=== PATIENT | female | born 1970 | race Caucasian/White ===

== ENCOUNTER 2024-07-27 12:27 | Day surgery (SDC) | payer OTHER, SELFPAY ==
[2024-07-17 13:37] VITALS: BMI 23.3
[2024-07-27] VITALS (12 sets, daily range): BP systolic 106–122; BP diastolic 68–82; PULSE 71–97; RESP 12–18; TEMP 36.1–36.8; O2SAT 95–100; BMI 23.0; BMI 23.8
--- NOTE | 2024-07-27 | PATH_ITS ---
[facility] Accession Number: [id number] No. of containers..01 Tissue . 01 Material submitted: . uterus - UTERUS,CERVIX,BILATERAL FALLOPIAN TUBES, BILATERAL OVARIES . 01 Diagnosis: UTERUS, CERVIX, BILATERAL FALLOPIAN TUBES AND OVARIES, HYSTERECTOMY AND BILATERAL SALPINGO-OOPHORECTOMY: Uterus with inactive endometrium with prominent decidualization, suggestive of exogenous hormone effect, and leiomyoma (0.5 cm). Bilateral fimbriated fallopian tubes with benign paratubal cysts, otherwise unremarkable. Histologically unremarkable cervix and bilateral ovaries. Negative for malignancy. [facility] 07/31/2024 1308 Local . 01 Electronically signed: . Heidy Anderson DO, Pathologist NPI- [id number] . 01 Gross description: . Received in formalin with two identifiers and uterus, cervix, bilateral fallopian tubes, and ovaries, is an intact uterus (95 grams, 8.3 cm superior to inferior, 6.0 cm medial to lateral, and 4.0 cm anterior to posterior) with attached cervix (3.1 x 3.0 cm), left fallopian tube (5.5 x 0.6 cm), left ovary (2 grams, 2.4 x 1.7 x 0.8 cm), right fallopian tube (4.8 x 0.9 cm), and right ovary (3 grams, 2.4 x 1.5 x 1.5 cm). . The ectocervix is rankin, smooth, and glistening with a patulous os, 0.7 cm in diameter. The anterior margin is inked blue while the posterior margin is inked black. The serosa is violaceous and wrinkled with no lesions identified. The endocervical canal has rankin, herringbone mucosa and measures up to 2.2 cm in length with multiple cystic structures filled with cloudy gelatinous material up to 0.6 cm in greatest dimension. The endometrial cavity is 2.4 cm from cornu to cornu and 4.1 cm in length with pink-red velvety endometrium that averages 0.1 cm thick. The myometrium is pink-rankin and moderately trabecular, up to 2.2 cm in maximum thickness with a well-circumscribed white whorled nodule, 0.5 cm in greatest dimension located intramurally. No additional lesions are identified. Both tubes have violaceous, smooth serosa with cysts up to 0.3 cm in greatest dimension filled with cloudy serous fluid. The lumina are stellate and unremarkable. . Both ovaries have rankin, smooth external surfaces and sectioning reveals both ovaries to have unremarkable physiologic cut surfaces with no lesions or cysts identified. . Integrity Manager sections are submitted as follows: A1: Anterior cervix. A2: Posterior cervix. A3: Anterior full thickness section. A4: Posterior full thickness section. A5: Nodule. A6 : Left fallopian tube to include one-half of bisected fimbriae and cross sections. A7: Left ovary. A8: Right fallopian tube to include one-half of bisected fimbriae and cross sections. A9: Right ovary. ([id number]) /MRV 07/28/2024 1801 Local . 01 Pathologist provided ICD-10: N39.3 . 01 CPT . 450253 Specimen Comment: A courtesy copy of this report has been sent to [phone] Performed at: [address] [facility] [address], [place], [place] [id number] MD Nahid Mederos MD Phone: [phone]
--- NOTE | 2024-07-27 10:25 | PM.PREOP ---
Pre-operative Note COVID-19 COVID-19 status: Not tested Interval Note History & Physical reviewed/Exam performed by Physician: Yes Changes to H&P: No
[2024-07-27] MEDS: LACTATED RINGERS 1,000 ML 42 ML IV (12:40)
[2024-07-27] MEDS: ACETAMINOPHEN 325 MG TABLET 975 MG PO (12:53)
[2024-07-27] MEDS: PREGABALIN 75 MG CAPSULE PO (12:53)
[2024-07-27] MEDS: ONDANSETRON 4 MG/2 ML INJ IV (12:56)
[2024-07-27] MEDS: FAMOTIDINE 20 MG/2 ML VIAL IV (12:56)
[2024-07-27] MEDS: SCOPOLAMINE 1 PATCH TOP (12:56)
--- NOTE | 2024-07-27 13:47 | SUR.OPER ---
Lithotomy on padded OR bed. [place] Pad Positioner under torso. Head on pillow, arms padded and tucked at sides. Legs secured in padded yellow fins stirrups.
--- NOTE | 2024-07-27 15:31 | PM.GYNOP.1 ---
Operative Date/Time/Diagnoses Date of procedure: 07/27/24 Time of procedure: 13:00 Pre-op diagnosis: Postmenopausal bleeding Stress urinary incontinence Post-op diagnosis: same Procedure & Clinicians Procedure: Procedures Operation Date: 07/27/24 14:15 Actual Procedure Side Surgeon p Laparoscopic Total Hysterectomy with bilateral salpingectomy, and bilateral oophorectomy Juan Antonio Morales MD s TVT sling with cysto Juan Antonio Morales MD Indications: Brenda is a 53-year-old who presents today for evaluation of persistent postmenopausal bleeding. She experienced menarche at age 8 and had regular predictable menses throughout her reproductive years Until 2011 when she had her 1st Mirena placed. The Mirena was removed and replaced in 2016 and it was removed in September 2021. Initially the patient had no bleeding but when bleeding recurred, a new IUD was placed in August 2022. Due to vasomotor symptoms, the patient has been on estradiol gel 0.075 mg daily since January 2023. Patient continues to bleed and endometrial sampling performed by her primary provider is negative. Pelvic ultrasound performed 07/28/2023 shows uterus to be anteverted and normal in size measuring 7.6 x 5.1 x 4.4 cm. The myometrium is described as homogeneous. The endometrium measures 3 mm in combined thickness. There were small calcifications noted in the myometrium but no fibroids were seen. Nabothian cysts are present in the cervix. The ovaries are normal with each having a total calculated volume of 1 cc and normal sonographic appearance. Patient has a history of normal Paps throughout her reproductive life. We had an extensive conversation regarding potential causes for postmenopausal bleeding as well as options for management. Included in those options is removal of her IUD in substitution of micronized progesterone. We also discussed the possibility of hysteroscopy with D&C and endometrial ablation. Unfortunately neither those options could guarantee that her postmenopausal bleeding with sees on a permanent basis. We also talked about hysterectomy with bilateral salpingo and is the direction which the patient would like to move forward. In addition she would also like to have a mid urethral sling placement at the time of hysterectomy to address her stress urinary incontinence. Endometrial sampling and a Pap smear were performed and are both negative. Patient presents today for her scheduled surgery. Surgeon: Juan Antonio Morales Anesthesia Type: General Operative Notes Findings: The uterus is normal in size and shape. The anterior and posterior cul-de-sacs are unremarkable. The tubes and ovaries both appeared to be normal. The remainder of the abdomen and pelvis are normal to laparoscopic inspection. Cystoscopy shows normal bladder mucosa throughout with no evidence of injury to the bladder during surgery and vigorous passage of urine from each ureteral meatus. Closure Type: primary Specimen(s): left tube & ovary, right tube & ovary and uterus Applied: catheter Estimated blood loss (mL): 75 Blood products transfused: none Procedure in detail: With the patient in modified dorsal lithotomy position preparations were made by prepping and draping the patient in usual manner for vaginal surgery and insertion of Ann catheter. A pre-surgical time-out was then taken in accordance with [facility] policy. A bivalve speculum was then placed in the vagina and the cervix visualized. The anterior lip of the cervix was then grasped with a single-tooth tenaculum. The uterus was sounded to 7 cm, the endocervical canal dilated slightly, and a VCare uterine manipulator with a medium colpotomy cup was placed. The umbilicus was then infiltrated with 0.5% Marcaine with epinephrine. A 1 cm umbilical incision was made transversely and a Veress needle was used to insufflate the abdominal cavity with carbon dioxide. Once the abdomen was appropriately insufflated, a 5 mm trocar and sleeve were then placed through the umbilical incision. The scope was placed through the trocar and the initial assessment of the intra-abdominal contents carried out. A 2nd and 3rd 5 mm port was then placed 1st in the right mid quadrant from then the left mid quadrant by infiltration of the skin and subcutaneous tissues, a 1 cm transverse incision and insertion of the 5 mm bladeless port. Using a 3 puncture technique, the abdomen and pelvis were inspected laparoscopy and photographically documented. Uterus is mobilized with the VCare manipulator and attention turned to the left adnexa. The distal tube was then grasped and the infundibulopelvic ligament divided after coagulation with the PowerSeal device. The dissection was then carried out toward the cornua, then carried down using the PowerSeal device so as to divide the utero-ovarian ligament and the round ligament with blunt and sharp dissection of the broad down to the level of the uterine artery. The uterine artery was then skeletonized after development of a bladder flap, coagulated, and divided. Once hemostasis was assured on the left side attention was turned to the right and the infundibulopelvic ligament, mesosalpinx, round ligament, and broad ligament were dissected in a fashion exactly the same as it had been on the left. The right uterine artery was then visualized after skeletonization and coagulated and divided. The uterus was seen to prasanth after coagulation of both your arteries and the cup was identified through the vaginal muscularis at its insertion with the body of the cervix. Circumferential excision of the vaginal cup was accomplished without difficulty using monopolar current and the uterus mobilized. The uterus was then removed through the vagina and the vaginal cuff closed [id number] with a series of 0 Vicryl gmhzny-kt-xkuir stitches. Hemostasis was excellent, the abdomen was re-insufflated, and the pelvis inspected laparoscopically. The pelvis was inspected for any abnormality or bleeding, and the ureters were each seen to be peristalsing freely. With complete hemostasis assured, the pneumoperitoneum was vented and the ports removed. All of the 5 mm ports were then closed with 4-0 Monocryl on the skin using inverted interrupted sutures. Skin glue was placed and after the glue was dried, an appropriate dressing was applied. A Ann catheter was inserted in the bladder at the beginning of the case and the mid urethra was identified by palpation of the Ann bulb. A weighted vaginal speculum was placed and once the mid urethra had been identified, 2 Allis clamps were placed and the area of incision infiltrated with 0.25% Marcaine with epinephrine. A 2 cm longitudinal incision of the vaginal mucosa overlying the mid urethra was then made and using Metzenbaum scissors the dissection was carried lateral on both sides so as to be able to safely introduce the retropubic tension-free vaginal tape. The TVT needle was placed 1st on the right side followed by placement of a left up through the suprapubic skin. The needle tips were brought out through the skin and remained in place while the Ann catheter was removed and cystoscopy performed with findings as noted above. The TVT needles were then brought up through the suprapubic incisions and removed with suture scissors. The mid urethral sling was then appropriately positioned under the mid urethra and the plastic sleeves removed from the TVT once it was in correct position. The redundant portion TVT material was then excised at the skin line of the suprapubic incisions. Correct positioning of the DVT was then confirmed and the vaginal incision closed with 3-0 chromic in a running locking stitch. Pressure was maintained on the retropubic tissues for 5 minutes so as to reduce the risk subsequent bleeding or bruising. The suprapubic incisions were then closed with skin glue and inappropriate dressing was applied. The case was then terminated, the patient awakened, and then transferred to PACU after having tolerated the procedure well. Complications: none Post-operative Condition: stable Disposition: PACU Plan for aftercare: Routine postoperative care follow-up planned for 2 weeks
[2024-07-27] MEDS: OXYCODONE IR 5 MG TABLET PO ×2 (15:46→20:13)
[2024-07-27] MEDS: LACTATED RINGERS 1,000 ML 100 ML IV (16:50)
[2024-07-27] MEDS: HYDROMORPHONE 1 MG INJ IV (17:13)
[2024-07-27] MEDS: ACETAMINOPHEN 325 MG TABLET 650 MG PO (17:13)
[2024-07-28] VITALS: BP 116/71; PULSE 69; RESP 16; TEMP 36.3; O2SAT 98
[2024-07-28] MEDS: ACETAMINOPHEN 325 MG TABLET 650 MG PO ×3 (00:08→11:10)
[2024-07-28] MEDS: OXYCODONE IR 5 MG TABLET PO (00:09)
[2024-07-28] MEDS: HYDROMORPHONE 1 MG INJ IV ×4 (00:35→11:58)
[2024-07-28 04:30] VITALS: BP 101/60; PULSE 65; RESP 20; TEMP 36.6; O2SAT 98
--- NOTE | 2024-07-28 06:25 | PC.NURSE ---
night shift supervisor RN assisted patient up with FWW and ambulated in the adan way with minimal assistance and patient felt good getting out of bed. Pt returned to bed and RN proceeded to remove Ann cath. Pt tolerated procedure without any complaints.
--- NOTE | 2024-07-28 08:45 | PM.DS.IH.1 ---
History of Present Illness History of Present Illness Date Patient Seen: 07/28/24 Time Patient Seen: 08:00 Chief complaint: Postmenopausal bleeding, CASSIUS Narrative: Brenda is a 53-year-old who presents today for evaluation of persistent postmenopausal bleeding. She experienced menarche at age 8 and had regular predictable menses throughout her reproductive years Until 2011 when she had her 1st Mirena placed. The Mirena was removed and replaced in 2016 and it was removed in September 2021. Initially the patient had no bleeding but when bleeding recurred, a new IUD was placed in August 2022. Due to vasomotor symptoms, the patient has been on estradiol gel 0.075 mg daily since January 2023. Patient continues to bleed and endometrial sampling performed by her primary provider is negative. Pelvic ultrasound performed 07/28/2023 shows uterus to be anteverted and normal in size measuring 7.6 x 5.1 x 4.4 cm. The myometrium is described as homogeneous. The endometrium measures 3 mm in combined thickness. There were small calcifications noted in the myometrium but no fibroids were seen. Nabothian cysts are present in the cervix. The ovaries are normal with each having a total calculated volume of 1 cc and normal sonographic appearance. Patient has a history of normal Paps throughout her reproductive life. We had an extensive conversation regarding potential causes for postmenopausal bleeding as well as options for management. Included in those options is removal of her IUD in substitution of micronized progesterone. We also discussed the possibility of hysteroscopy with D&C and endometrial ablation. Unfortunately neither those options could guarantee that her postmenopausal bleeding with sees on a permanent basis. We also talked about hysterectomy with bilateral salpingo and is the direction which the patient would like to move forward. In addition she would also like to have a mid urethral sling placement at the time of hysterectomy to address her stress urinary incontinence. Endometrial sampling and a Pap smear were performed and are both negative. Patient presents today for her scheduled surgery. Discharge Providers Provider Date of admission: 07/27/2024 Discharge Date: 07/28/24 Primary care physician: Tuyet Shahid DO Discharge provider: Juan Antonio Morales MD Summary Hospital Course Discharge Diagnosis: Postmenopausal bleeding Stress urinary incontinence Status post total laparoscopic hysterectomy with bilateral salpingo oophorectomy and mid urethral sling placement with cystoscopy Hospital Course: Brenda was admitted on 07/27/2024 and underwent an uneventful total laparoscopic hysterectomy with bilateral salpingo oophorectomy and placement of mid urethral sling with cystoscopy. Full details of the procedure are well summarized on my operative note of that date. Following surgery the patient has done extremely well with prompt return of bowel and bladder function, she is ambulating independently, tolerating regular diet, and her pain is reasonably well controlled with oral pain medications. She will be discharged at this time to home in an afebrile normotensive condition after counseling regarding precautionary symptoms, limitations of activity, medications, and plans for follow-up which will be in 2 weeks. Medications at discharge will include resumption of all preadmission medications as well as Dilaudid 4 mg p.o. q.6 hours as needed for pain, dispense 12 with no refills, and Cipro 500 mg p.o. b.i.d. times 5 days for UTI prophylaxis. Status at Discharge Cognitive/behavioral status at discharge: oriented Functional status at discharge: independent ambulation Overall status at discharge: patient is progressing back to baseline Time Spent with Patient Time spent: Less than 30 minutes Exam Vital Signs (past 8 hours): - 07/28/24 04:30 Temperature 97.9 F Pulse Rate 65 Respiratory Rate 20 Blood Pressure 101/60 Pulse Oximetry 98 Oxygen Flow Rate 0 Oxygen Delivery Method Room Air Oxygen Flow Rate 0 Const General: cooperative and comfortable Nutritional Appearance: average body habitus Orientation: alert and oriented x3 HENMT Head: normal to inspection, atraumatic and abrasion Ears: hearing grossly normal bilaterally Face and sinus: face symmetric Eyes General: appearance normal, both eyes and all related structures Conjunctivae: conjunctivae normal Sclera: sclerae normal EOM: EOM intact bilaterally Neck Neck: normal visual inspection Resp Effort & Inspection: normal respiratory effort and able to speak in complete sentences Auscultation: clear to auscultation bilaterally Cardio Rate: regular rate Rhythm: regular rhythm Heart Sounds: S1 normal, S2 normal and no murmurs GI Inspection: normal to inspection and incision (Surgical dressings clean and dry) Palpation: soft, no hepatosplenomegaly and tender (Mild, diffuse postsurgical tenderness) External Female Exam: other (No significant bleeding noted) Extrem General: no calf tenderness Psych Appearance: grossly normal Mental Status: mental status grossly normal Speech and Movement: speech and movement normal Mood: congruent mood Affect: normal affect Attitude: cooperative Thought Process: normal Thought Content: normal Judgment: judgment good Objective Labs 07/28/24 09:55 PFSH Medical History (Updated 05/28/24 @ 18:42 by Li Stubbs) Wears glasses Anxiety (~2019) ADHD (~2019) Chicken pox (~1972) Postmenopausal bleeding CASSIUS (stress urinary incontinence, female) Surgical History (Updated 05/28/24 @ 18:42 by Li Stubbs) Anesthesia History of colonoscopy Family History (Updated 05/28/24 @ 18:46 by Li Stubbs) Father Lung cancer Prediabetes Hyperlipidemia Mother Breast cancer Social History household members: spouse alcohol intake: never Discharge Assessment & Plan Assessment and Plan Assessment: Postmenopausal bleeding Stress urinary incontinence Status post total laparoscopic hysterectomy with bilateral salpingo oophorectomy and mid urethral sling placement with cystoscopy Plan of Treatment: Routine postoperative care with follow-up planned for 2 weeks after surgery Discharge Plan Discharge Plan Patient Disposition: Home Provider Discharge Comment: Please review the written instructions you received when you were discharged from the hospital. Your follow-up appointment will be scheduled for 2 weeks after your surgery and I look forward to seeing you then. If however in the meanwhile you have any issues, concerns, or questions, please contact me either by phone at [phone], or via the patient portal. Discharge orders & Medications Discharge Orders: Discharge (Order); Ordered 07/28/24 Ordered By: Juan Antonio Morales Prescriptions: New hydromorphone [Dilaudid] 4 mg tablet 4 mg PO Q6H PRN (Reason: pain) Qty: 12 0RF ciprofloxacin HCl 500 mg tablet 500 mg PO BID 5 Days Qty: 10 0RF Continued celecoxib 200 mg capsule 200 mg PO DAILY trazodone 100 mg tablet 100 mg PO DAILY methylphenidate HCl 10 mg tablet 10 mg PO DAILY baclofen 10 mg tablet 10 mg PO DAILY estradiol [Vagifem] 10 mcg tablet 10 mcg vaginal 3XW Qty: 12 12RF Mounjaro 7.5 mg/0.5 mL pen injector 7.5 mg SUBCUT Q2W Follow up/Referrals: Tuyet Shahid DO [Primary Care Provider] - Juan Antonio Morales MD [Physician] - Diet/Activity/Treatments Diet: Diet as Tolerated Activity: As tolerated Other treatments: Zjfh-fhw-tqdbhmg Tylenol and/or ibuprofen may be used for additional pain relief. Lrqu-yyk-venyzmx stool softeners and/or MiraLax may be used as needed for constipation. Skin/Wound/Dressing Care Report to your healthcare provider any signs of infection, such as:: chills, fever, increased pain, unusual drainage and unusual redness Dressing: Dressings should be removed on the morning of 07/29/2024 Visit Report/Discharge Packet Instructions: DI for Hysterectomy, DI for Laparoscopy, DI for Prescription Opioid Use Stand Alone Forms: Patient Portal/API, Surgery Discharge Print Language: Green[place]ic Discharge Data Primary Care Provider: Tuyet Shahid Attending Provider: Juan Antonio Morales VTE Deep Vein Thrombosis/Pulmonary Embolism Present on Admission: No PROFEE Charge Codes Discharge inpatient/observation: 87856
[2024-07-28 08:48] VITALS: BP 140/68; PULSE 81; RESP 16; TEMP 36.8; O2SAT 94
[2024-07-28 10:03] LABS: Add Manual Diff / Slide Review NO; Basophils Absolute Auto 0 /uL (0-100); Basophils Percent Auto 0.3 % (0-2); Eosinophils Absolute Auto 0 /uL (0-450); Eosinophils Percent Auto 0.2 % (2-4); Hematocrit 40.3 % (36-46); Hemoglobin 13.5 g/dL (12.0-16.0); Lymphocytes Absolute Auto 2900 /uL (1100-4500); Lymphocytes Percent Auto 15.7 % (25-40); Mean Corpuscular HGB Conc 33.6 % (30-36); Mean Corpuscular Hemoglobin 31.1 PG (26-34); Mean Corpuscular Volume 92.5 fL (80-100); Monocytes Absolute Auto 1100 /uL (0-900); Monocytes Percent Auto 6.3 % (3-14); Neutrophils Absolute Auto 14200 /uL (1500-7000); Neutrophils Percent Auto 77.5 % (50-75); Platelet Count 225 X10^3/uL (150-400); Red Blood Cell Count 4.35 X10^6/uL (4.0-5.2); Red Cell Distribution Width 13.4 % (11.6-14.8); White Blood Cell Count 18.2 X10^3/uL (4.5-11.0)
--- NOTE | 2024-07-28 10:56 | PC.NURSE ---
Pt got up to the bathroom wit SBA. Pt urinated about 150 ml after the Ann cath was removed and has residual volume of 208 ml.
[2024-07-28] MEDS: HYDROMORPHONE 2 MG TABLET 4 MG PO (11:09)
--- NOTE | 2024-07-28 12:39 | CM.DANOTE ---
DCP Assessment Note: Pt is a 53yo female, resident of [place], is s/p laparoscopic Total Hysterectomy.Pt lives in a house with her , Kevin. Pt's Primary Care Provider is Dr. Tuyet Shahid and insurance is [employer]. Reviewed chart and discussed with multidisciplinary team pt's medical status and initial discharge needs. DCP met w/patient at bedside; introduced self and role. Patient was found in bed, alert and oriented, cooperative with assessment. Pt confirmed living situation and good support in . Pt expressed preference in discharge home, denied any other needs in the community at this time. Plan: Discharge orders are in, pt to discharge home with spouse to transport when cleared. CM team will follow closely for coordination of discharge plans. Leatha Paulino APPLICATIONS INTERN Discharge Planning/Care Management CM Discharge Assessment Start: 07/28/24 12:38 Freq: Status: Active Protocol: Document 07/28/24 12:38 MW (Rec: 07/28/24 12:39 MW [id number]) Discharge Planning Assessment Assigned Internist Medical Doctor Md EFRAÍN Zhang DPOA/Assigned Designee Name Kevin, Spouse Contact Information [phone] Advance Directives? No History Provided By Patient,Family Member,Medical Record Has Patient been admitted in last 30 No days? Prior Living Arrangements House Household Members spouse Type of transporation used prior to Drives own vehicle admit Independent with ADL's Yes Is patient alert and oriented? Yes Caregiver for Another No Discharge Plan Home Transportation Arrangement Spouse Referrals Initiated None needed Whiteboard Updated in Patient Room with Yes name and ext. # of Internist Medical Doctor Md Comment [id number] Review Status In Process Please Provide Date Initial DC 07/28/24 Assessment Was Performed Next Review Type Continued Stay Review Pre-Anesthesia Assessment Start: 07/17/24 13:37 Freq: Status: Complete Protocol: Document 07/17/24 13:37 CAB (Rec: 07/17/24 13:54 CAB [id number]) Pre-Anesthesia Assessment PAC Comment Chart review 07/17/24 Patient Information Reviewed Via Chart Review Primary Care Provider Tuyet Shahid Specialist Seen Prevention Specialist Primary Language [place] [employer] Test Technician Required No Height 157.48 cm Weight 58.06 kg Body Mass Index (BMI) 23.3 Visual Assist Glasses Anesthesia Review Requested No Logistics Analytics Manager No History of Falling (Recent or History of No ) Patient is completely paralyzed or No completely immobile Mental Status Oriented to own ability Is patient on oxygen? No Hx Sleep Apnea No Currently Taking a Beta Yosef No Anti-Coagulant Therapy No Cardiac Testing No Hx Pacemaker/ICD No Pacemaker Rep Required? No Cardiac Clearance Received No Genitourinary Symptoms Non-Menses Vaginal Bleeding Bladder Pattern Incontinent, Stress Urinary Catheter Present No Hx Urinary Self Catheterization No Diabetes No Patient No Lactating No Marital Status Lives With spouse Patient Discharge Plan Description Return Home
== END 2024-07-28 12:25 | disposition home or self-care (01) ==
LOC: OR 12:28 → AC 12:29
PROVIDERS: PCP Obstetrics & Gynecology; Referring Provider Obstetrics & Gynecology; Visit Provider Obstetrics & Gynecology
PROC: 0UT94ZZ Resection of Uterus, Percutaneous Endoscopic Approach (ICD-10-PCS; CPT 58571; principal; 2024-07-27 14:15)
PROC: 0TSD0ZZ Reposition Urethra, Open Approach (ICD-10-PCS; CPT 58571; 2024-07-27 14:15)
DX: N95.0 Postmenopausal bleeding (principal); N39.3 Stress incontinence (female) (male); D25.9 Leiomyoma of uterus, unspecified; N83.8 Other noninflammatory disorders of ovary, fallopian tube and broad ligament
CPT/HCPCS: 58571; 57288; 36415; 85025; C1771; J1100; J1171; J2250; J2405; J2704; J3010